=== PATIENT | male | born 1990 | race Caucasian/White ===

== ENCOUNTER 2020-02-24 15:39 | Emergency (ER) | payer OTHER, MEDICAID, SELFPAY ==
[2020-02-24 15:52] VITALS: BP 147/74; TEMP 37; BMI 32.5
[2020-02-24 16:03] LABS: Add Manual Diff / Slide Review NO; Basophils Absolute Auto 100 /uL (0-100); Basophils Percent Auto 1.2 % (0-2); Eosinophils Absolute Auto 200 /uL (0-450); Eosinophils Percent Auto 2.7 % (2-4); Hematocrit 44.2 % (41-53); Hemoglobin 14.9 g/dL (13.5-17.5); Lymphocytes Absolute Auto 2200 /uL (1100-4500); Lymphocytes Percent Auto 29.3 % (25-40); Mean Corpuscular HGB Conc 33.6 % (30-36); Mean Corpuscular Hemoglobin 29.2 PG (26-34); Mean Corpuscular Volume 86.8 fL (80-100); Monocytes Absolute Auto 600 /uL (0-900); Neutrophils Absolute Auto 4300 /uL (1500-7000); Neutrophils Percent Auto 58.8 % (50-75); Platelet Count 306 X10^3/uL (150-400); Red Blood Cell Count 5.09 X10^6/uL (4.5-5.9); Red Cell Distribution Width 13.6 % (11.6-14.8); White Blood Cell Count 7.4 X10^3/uL (4.5-11.0)
[2020-02-24 16:13] LABS: Alanine Aminotransferase 27 IU/L (<50); Albumin 4.5 g/dL (3.5-5.0); Albumin Globulin Ratio 1.3 (1.0-2.8); Alkaline Phosphatase 97 U/L (38-126); Amylase 70 U/L (30-110); Aspartate Aminotransferase 30 IU/L (17-59); BUN Creatinine Ratio 11.4 (6-22); Bilirubin Total 0.5 mg/dL (0.2-1.3); Blood Urea Nitrogen 10 mg/dL (9-20); Calcium 9.3 mg/dL (8.4-10.2); Carbon Dioxide 25 mmol/L (22-32); Chloride 104 mmol/L (98-107); Estimated Glomerular Filt Rate > 60.0 mL/min (>60); Globulin 3.4 g/dL (1.7-4.1); Glucose 105 mg/dL (70-100); HEMOLYSIS 41 (0-50); Lipase 34 U/L (23-300); Potassium 4.2 mmol/L (3.4-5.1); Sodium 138 mmol/L (137-145); Total Protein 7.9 g/dL (6.3-8.2)
--- NOTE | 2020-02-24 17:30 | DI.CT.S_ITS ---
PROCEDURE: CT ABDOMEN PELVIS W CON INDICATIONS: rlq pain TECHNIQUE: After the administration of intravenous contrast, 5 mm thick sections acquired from the diaphragm to the symphysis. 5 mm coronal and sagittal reformats were acquired. For radiation dose reduction, the following was used: automated exposure control, adjustment of mA and/or kV according to patient size. COMPARISON: None. FINDINGS: Image quality: Excellent. ABDOMEN: Lung bases: Lung bases are clear. Heart size is normal. Solid organs: Liver is normal in size and enhancement. Gallbladder is unremarkable. Biliary system is non dilated. Pancreas enhances normally. Spleen is normal in size and enhancement. No adrenal nodules. Kidneys demonstrate normal size and enhancement, without hydronephrosis. Peritoneum and bowel: Question mild thickening of the wall of the cecum and ascending colon versus decompressed appearance. Bowel loops otherwise demonstrate normal wall thickness and caliber. No free fluid or air. Normal appendix. No abscess cavity. Nodes and vessels: No retroperitoneal or mesenteric adenopathy by size criteria. Aorta and inferior vena cava are normal in size. Miscellaneous: No ventral hernias. PELVIS: Genitourinary: Bladder wall thickness is normal. Miscellaneous: No inguinal hernias or adenopathy. Bones: No suspicious bony lesions. No vertebral body compression fractures. IMPRESSION: 1. Normal appendix. 2. Question mild diffuse bowel wall thickening of the cecum and ascending colon versus decompressed bowel. Question possible focal colitis. Consider infectious versus inflammatory causes. Dictated by: Neo Pollack M.D. on 02/24/2020 at 17:07 Approved by: Neo Pollack M.D. on 02/24/2020 at 17:10
[2020-02-24] MEDS: predniSONE 20 MG TABLET 40 MG PO (19:07)
[2020-02-24 19:49] VITALS: BP 153/96; PULSE 89; RESP 16; O2SAT 97
--- NOTE | 2020-02-24 20:12 | ED.ABDPAIN ---
HPI - Abdominal Pain <ALEXIS Carey - Last Filed: 02/24/20 20:19> General Chief Complaint: Abdominal Pain Stated Complaint: right side abdominal pain Time Seen by Provider: 02/24/20 15:43 Source: patient Mode of arrival: Ambulatory Limitations: no limitations History of Present Illness HPI narrative: The patient is a 30-year-old male nonsmoker who denies pertinent medical history presents with a chief complaint of right lower quadrant pain. He states he woke up with it today. This got progressively worse at times, waxing and waning. No fevers nausea vomiting or diarrhea. States he is eating and drinking well. No chest pain or shortness of breath. Denies any history of abdominal surgeries. Pain is nonradiating, does not go anywhere. He has not taken anything for it. Last oral intake was ?a large piece of cake at 11:30 a.m.he is accompanied by his mother. Denies any flank pain, had 1 episode of dysuria earlier today, no urgency or frequency. Mother states that she thinks her son has had episodes like this before. Related Data Previous Rx's Medication Instructions Recorded paroxetine HCl [Paxil] 0 PO QDAY #360 ml 03/25/16 prednisone 40 mg PO DAILY 4 Days #8 tab 02/24/20 Review of Systems <ALEXIS Carey - Last Filed: 02/24/20 20:19> Review of Systems Narrative: GENERAL: Denies chills, fatigue, malaise, fever, sweats. HEENT: Denies sinus pain, ear pain, sore throat, difficulty swallowing, dizziness. RESPIRATORY: Denies dyspnea, cough, wheezing, hemoptysis, sputum. CARDIOVASCULAR: Denies chest pain, palpitations, orthopnea, edema, GASTROINTESTINAL: See HPI : See HPI MUSCULOSKELETAL: denies weakness, joint pain, or bony pain SKIN: Denies rash, skin lesions, or other NEUROLOGIC: Denies weakness, headache, numbness, change in speech, confusion, seizures, incoordination. PSYCHIATRIC: No concerning psychosocial issues. 12 point review of systems is negative except for those stated above Patient History <ALEXIS Carey - Last Filed: 02/24/20 20:19> Surgical History History of tonsillectomy Family History Father Age: 67 Essential hypertension Mother Age: 61 High cholesterol Grandmother Age: 90 Diabetes mellitus Social History Smoking Status: Never smoker Smoking Status: Never smoker Exam <ALEXIS Carey - Last Filed: 02/24/20 20:19> Narrative Exam Narrative: GENERAL: This is a well-nourished, well-developed patient, in no acute distress HEAD: Atraumatic. Normocephalic. No temporal or scalp tenderness. EYES: Pupils equal round and reactive. Extraocular motions intact. No scleral icterus. No injection or drainage. ENT: Nose without bleeding, purulent drainage or septal hematoma. Throat without erythema, tonsillar hypertrophy or exudate. Uvula midline. Airway patent. NECK: Trachea midline. No JVD or lymphadenopathy. Supple, nontender, no meningeal signs. CARDIOVASCULAR: Regular rate and rhythm RESPIRATORY: Clear to auscultation. Breath sounds equal bilaterally. No wheezes, rales, or rhonchi. No cough. No increased respiratory effort. No accessory muscle use GASTROINTESTINAL: Abdomen soft, right lower quadrant tenderness to palpation with guarding, nondistended. No hepato-splenomegaly, or palpable masses. Active bowel sounds all 4 quadrants EXTREMITIES: No clubbing, cyanosis, or edema. No joint tenderness, effusion, or edema noted. BACK: Nontender without deformity or crepitance. No flank tenderness. NEURO: AOx3. SKIN: No rash or erythema. Initial Vital Signs Initial Vital Signs: Vital Signs Temperature 98.6 F 02/24/20 15:52 Blood Pressure 147/74 H 02/24/20 15:52 <Kishore Mcintyre DO - Last Filed: 02/24/20 20:35> Initial Vital Signs Initial Vital Signs: Vital Signs Temperature 98.6 F 02/24/20 15:52 Blood Pressure 147/74 H 02/24/20 15:52 Scores <ALEXIS Carey - Last Filed: 02/24/20 20:19> GCS Kelsey coma scale eye opening: Spontaneous [place] coma scale verbal response: Orientated Kelsey coma scale motor response: Obey commands Kelsey coma scale total score: 15 Course <ALEXIS Carey - Last Filed: 02/24/20 20:19> Orders Ordered: ED Orders 02/24/20 15:55 Amylase Stat Complete Blood Count AUTO DIFF Stat Comprehensive Metabolic Panel Stat Lipase Stat 02/24/20 17:30 CT abdomen pelvis w con Stat Discontinued Medications Prednisone (Deltasone) 40 mg PO NOW ONE Stop: 02/24/20 18:47 Last Admin: 02/24/20 19:07 Dose: 40 mg Documented by: MALIKA Vital Signs Vital signs: Vital Signs - 8 hr 02/24/20 15:52 02/24/20 19:49 Temperature 98.6 F Pulse Rate 89 Respiratory Rate 16 Blood Pressure 147/74 H 153/96 H Pulse Oximetry 97 <Kishore Mcintyre DO - Last Filed: 02/24/20 20:35> Orders Ordered: ED Orders 02/24/20 15:55 Amylase Stat Complete Blood Count AUTO DIFF Stat Comprehensive Metabolic Panel Stat Lipase Stat 02/24/20 17:30 CT abdomen pelvis w con Stat Discontinued Medications Prednisone (Deltasone) 40 mg PO NOW ONE Stop: 02/24/20 18:47 Last Admin: 02/24/20 19:07 Dose: 40 mg Documented by: MALIKA Vital Signs Vital signs: Vital Signs - 8 hr 02/24/20 15:52 02/24/20 19:49 Temperature 98.6 F Pulse Rate 89 Respiratory Rate 16 Blood Pressure 147/74 H 153/96 H Pulse Oximetry 97 MDM - Abdominal Pain <ALEXIS Carey - Last Filed: 02/24/20 20:19> Differential Diagnosis Differential diagnosis: Likely abdominal pain, acute appendicitis and calculus of kidney Lab Data Attestation: I reviewed the patient's lab results. Result diagrams: 02/24/20 15:55 02/24/20 15:55 Labs: Lab Results 02/24/20 02/24/20 Range/Units 15:55 15:55 WBC 7.4 (4.5-11.0) X10^3/uL RBC 5.09 (4.5-5.9) X10^6/uL Hgb 14.9 (13.5-17.5) g/dL Hct 44.2 (41-53) % MCV 86.8 (80-100) fL MCH 29.2 (26-34) PG MCHC 33.6 (30-36) % RDW 13.6 (11.6-14.8) % Plt Count 306 (150-400) X10^3/uL Neut % (Auto) 58.8 (50-75) % Lymph % (Auto) 29.3 (25-40) % [place] % (Auto) 8.0 (3-14) % Eos % (Auto) 2.7 (2-4) % Baso % (Auto) 1.2 (0-2) % Neut # (Auto) 4300 (4643-9841) /uL Lymph # (Auto) 2200 (4117-1038) /uL [place] # (Auto) 600 (0-900) /uL Eos # (Auto) 200 (0-450) /uL Baso # (Auto) 100 (0-100) /uL Sodium 138 (137-145) mmol/L Potassium 4.2 (3.4-5.1) mmol/L Chloride 104 (98-107) mmol/L Carbon Dioxide 25 (22-32) mmol/L BUN 10 (9-20) mg/dL Creatinine 0.88 (0.66-1.25) mg/dL Estimated GFR > 60.0 (>60) mL/min BUN/Creatinine Ratio 11.4 (6-22) Glucose 105 H (70-100) mg/dL Calcium 9.3 (8.4-10.2) mg/dL Total Bilirubin 0.5 (0.2-1.3) mg/dL AST 30 (17-59) IU/L ALT 27 (<50) IU/L Alkaline Phosphatase 97 (38-126) U/L Total Protein 7.9 (6.3-8.2) g/dL Albumin 4.5 (3.5-5.0) g/dL Globulin 3.4 (1.7-4.1) g/dL Albumin/Globulin Ratio 1.3 (1.0-2.8) Amylase 70 (30-110) U/L Lipase 34 (23-300) U/L Point of care testing: Urine Dip Bedside Urine Glucose Negative Bedside Urine Bilirubin - Negative Bedside Urine Ketone - Negative Urine Specific [place] 1.005 Bedside Urine Occult Blood - Negative Bedside Urine pH 6.0 Bedside Urine Protein - Negative Bedside Urine Urobilinogen - Negative Bedside Urine Nitrite - Negative Bedside Urine Leukocytes - Negative Esterase Imaging Data CT scan - abdomen/pelvis: Radiologist's Impression: [address] [place] [id number] Scan Report Signed Patient: Jose Grove JMR#: [id number] : 1990Acct:[id number] Age/Sex: 30 / MDate of Service: 02/24/20 Loc: ED Accession Number: [id number] Procedure: CT abdomen pelvis w con Ordering Provider: Rosa Maria Sharp- PROCEDURE: CT ABDOMEN PELVIS W CON INDICATIONS: rlq pain TECHNIQUE: After the administration of intravenous contrast, 5 mm thick sections acquired from the diaphragm to the symphysis. 5 mm coronal and sagittal reformats were acquired. For radiation dose reduction, the following was used: automated exposure control, adjustment of mA and/or kV according to patient size. COMPARISON: None. FINDINGS: Image quality: Excellent. ABDOMEN: Lung bases: Lung bases are clear. Heart size is normal. Solid organs: Liver is normal in size and enhancement. Gallbladder is unremarkable. Biliary system is non dilated. Pancreas enhances normally. Spleen is normal in size and enhancement. No adrenal nodules. Kidneys demonstrate normal size and enhancement, without hydronephrosis. Peritoneum and bowel: Question mild thickening of the wall of the cecum and ascending colon versus decompressed appearance. Bowel loops otherwise demonstrate normal wall thickness and caliber. No free fluid or air. Normal appendix. No abscess cavity. Nodes and vessels: No retroperitoneal or mesenteric adenopathy by size criteria. Aorta and inferior vena cava are normal in size. Miscellaneous: No ventral hernias. PELVIS: Genitourinary: Bladder wall thickness is normal. Miscellaneous: No inguinal hernias or adenopathy. Bones: No suspicious bony lesions. No vertebral body compression fractures. IMPRESSION: 1. Normal appendix. 2. Question mild diffuse bowel wall thickening of the cecum and ascending colon versus decompressed bowel. Question possible focal colitis. Consider infectious versus inflammatory causes. Dictated by: Neo Pollack M.D. on 02/24/2020 at 17:07 Approved by: Neo Pollack M.D. on 02/24/2020 at 17:10 [facility] [place] Narrative Medical decision making narrative: The patient is a 30-year-old male who presents with a chief complaint of right lower quadrant tenderness to palpation. He started having this this morning. Given his guarding on exam, I did obtain a CT scan which showed concern for colitis. This is thought to be more inflammatory rather than infectious as the patient is afebrile, no vomiting, no leukocytosis. Thus he was placed on steroids. He appears well and nontoxic throughout stay in the emergency department. Encouraged him to follow up with primary care provider in the next few days and come back to emergency department for any acute concerns. Discussed light diet, pushing fluids, no spicy deep fried fatty foods etcetera discussed at length coming back to the ER for acute concerns such as inability keep down fluids, abdominal pain with fever etcetera. Patient mother no questions or concerns upon discharge and state understanding of return precautions as well as follow-up care. <Kishore Mcintyre, - Last Filed: 02/24/20 20:35> Lab Data Labs: Lab Results 02/24/20 02/24/20 Range/Units 15:55 15:55 WBC 7.4 (4.5-11.0) X10^3/uL RBC 5.09 (4.5-5.9) X10^6/uL Hgb 14.9 (13.5-17.5) g/dL Hct 44.2 (41-53) % MCV 86.8 (80-100) fL MCH 29.2 (26-34) PG MCHC 33.6 (30-36) % RDW 13.6 (11.6-14.8) % Plt Count 306 (150-400) X10^3/uL Neut % (Auto) 58.8 (50-75) % Lymph % (Auto) 29.3 (25-40) % [place] % (Auto) 8.0 (3-14) % Eos % (Auto) 2.7 (2-4) % Baso % (Auto) 1.2 (0-2) % Neut # (Auto) 4300 (0844-0615) /uL Lymph # (Auto) 2200 (5224-3847) /uL [place] # (Auto) 600 (0-900) /uL Eos # (Auto) 200 (0-450) /uL Baso # (Auto) 100 (0-100) /uL Sodium 138 (137-145) mmol/L Potassium 4.2 (3.4-5.1) mmol/L Chloride 104 (98-107) mmol/L Carbon Dioxide 25 (22-32) mmol/L BUN 10 (9-20) mg/dL Creatinine 0.88 (0.66-1.25) mg/dL Estimated GFR > 60.0 (>60) mL/min BUN/Creatinine Ratio 11.4 (6-22) Glucose 105 H (70-100) mg/dL Calcium 9.3 (8.4-10.2) mg/dL Total Bilirubin 0.5 (0.2-1.3) mg/dL AST 30 (17-59) IU/L ALT 27 (<50) IU/L Alkaline Phosphatase 97 (38-126) U/L Total Protein 7.9 (6.3-8.2) g/dL Albumin 4.5 (3.5-5.0) g/dL Globulin 3.4 (1.7-4.1) g/dL Albumin/Globulin Ratio 1.3 (1.0-2.8) Amylase 70 (30-110) U/L Lipase 34 (23-300) U/L Point of care testing: Urine Dip Bedside Urine Glucose Negative Bedside Urine Bilirubin - Negative Bedside Urine Ketone - Negative Urine Specific [place] 1.005 Bedside Urine Occult Blood - Negative Bedside Urine pH 6.0 Bedside Urine Protein - Negative Bedside Urine Urobilinogen - Negative Bedside Urine Nitrite - Negative Bedside Urine Leukocytes - Negative Esterase Discharge Plan Departure Patient Disposition: Home Clinical Impression: Colitis Discharge Date/Time: 02/24/20 19:51 Instructions: DI for Colitis Activity Restrictions/Additional Instructions: Thank you for trusting us with your care today. As discussed, your CT shows evidence of colitis. We have elected to treat you with steroids at this point time. Please monitor for any signs of worsening including fever, abdominal pain with fever, inability keep down fluids etcetera As discussed, I encouraged heat a light diet over the next few days with a focus on fluids. Please eat bland foods, avoid deep fried fatty foods, spicy foods etcetera Please follow-up with primary care provider. I have included contact information the [facility] v[facility] human resources as well as your old primary care provider. I sent your steroid prescription to [facility]. Prescriptions: New prednisone 20 mg tablet 40 mg PO DAILY 4 Days Qty: 8 RF: 0 No Action paroxetine HCl [Paxil] 10 MG/5 ML suspension 0 PO QDAY Qty: 360 RF: 5 Referrals: [facility] [Outside] Jak Jovel MD [Primary Care Provider] - <Kishore Mcintyre, DO - Last Filed: 02/24/20 20:35> Cosign ED Attending Cosignature Attestation: Dr Mcintyre Co-Sign Statement: I was available for consultation during this patient's emergency department visit. This chart is signed by myself for administrative purposes only. I did not have direct contact with this patient during this visit. They were seen independently by the APC.
== END 2020-02-24 19:51 | disposition home or self-care (01) ==
PROVIDERS: Emergency Provider Nurse Practitioner Family; Family Provider Family Medicine; PCP Family Medicine
DX: K52.9 Noninfective gastroenteritis and colitis, unspecified (principal)
CPT/HCPCS: 36415; 74177; 80053; 81003; 82150; 83690; 85025; 99283; 99284; Q9967

== ENCOUNTER 2021-11-10 19:24 | Emergency (ER) | payer OTHER, MEDICAID, SELFPAY ==
[2021-11-10 19:36] VITALS: BP 132/87; PULSE 82; RESP 16; TEMP 36.6; O2SAT 98; BMI 31.1
--- NOTE | 2021-11-10 20:11 | DI.RAD.S_ITS ---
PROCEDURE: XR FOOT RT MIN 3V INDICATIONS: foot pain TECHNIQUE: 3 views of the foot were acquired. COMPARISON: None. FINDINGS: Bones: No fractures or dislocations. No suspicious bony lesions. Soft tissues: No tibiotalar joint effusion. Achilles tendon appears normal. IMPRESSION: 1. No fracture or dislocation. Dictated by: Joseph Merino M.D. on 11/10/2021 at 21:11 Approved by: Joseph Merino M.D. on 11/10/2021 at 21:12
--- NOTE | 2021-11-10 23:12 | ED_ITS ---
HPI - Extremity Injury (Lower) General Chief Complaint: Extremity Injury, Lower Stated Complaint: unable to walk on rt foot Time Seen by Provider: 11/10/21 23:12 Mode of arrival: Ambulatory History of Present Illness HPI Narrative: 31-year-old gentleman history of Asperger's syndrome but otherwise minimal medical history presents with 2 and half months of heel pain on the right side that is getting progressively worse. He has tried multiple times to given to his primary care physician and has been unable to schedule an appointment. He notes that the 1st step of the morning is the worst, standing on it for extended periods of time makes it worse. He has trouble swallowing pills so has not been using consistent anti-inflammatories. 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 He peacock have inserts for his tennis shoes but they are not sp ecifically plantar fasciitis inserts. The pain is getting to the point where it is not tolerable. He was walking on some grass today and twisted just the right way and had increasing pain and came in for further evaluation. Related Data Previous Rx's Medication Instructions Recorded paroxetine HCl 10 mg/5 mL oral 0 PO QDAY #360 ml 03/25/16 suspension (Paxil) meloxicam 15 mg tablet 15 mg PO DAILY #30 tab 11/11/21 Allergies Allergy/AdvReac Type Severity Reaction Status Date / Time No Known Drug Allergies Allergy Unverified 11/10/21 19:39 Review of Systems Review of Systems Narrative: Remainder of complete review of systems is otherwise unremarkable except for that included in the HPI. Patient History Medical History Colitis (~2019) Well adult Surgical History History of tonsillectomy Family History Father Essential hypertension Cancer Mother Age: 62 High cholesterol Grandmother Age: 91 Diabetes mellitus Grandfather Cancer Social History Smoking Status: Never smoker Smoking Status: Never smoker Substance Use Type: does not use Exam Initial Vital Signs Initial Vital Signs: Vital Signs Temperature 97.8 F 11/10/21 19:36 Pulse Rate 82 11/10/21 19:36 Respiratory Rate 16 11/10/21 19:36 Blood Pressure 132/87 11/10/21 19:36 Pulse Oximetry 98 11/10/21 19:36 General: Alert appropriate in no acute distress Respiratory: Able to speak in full sentences, no obvious respiratory distress Skin: No obvious rashes, warm and dry Neurologic: Grossly intact no obvious asymmetries or abnormalities Psych: appropriate insight and affect, cooperative Extremity: Right heel is examined. He is point tender over the plantar insertion area. There is no swelling, redness, skin breakdown, pain in the forefoot or suggestion gout. No ankle tenderness with manipulation and nonpainful range of motion. Course Orders Ordered: ED Orders 11/10/21 20:11 XR foot RT min 3V Stat Vital Signs Vital signs: Vital Signs - 8 hr 11/10/21 19:36 Temperature 97.8 F Pulse Rate 82 Respiratory Rate 16 Blood Pressure 132/87 Pulse Oximetry 98 MDM - Extremity Injury (Lower) MDM Narrative Medical decision making narrative: 31-year-old gentleman with fairly classic presentation of plantar fasciitis that is not improving. No evidence of gout, infection, arthritis or alternative explanations that needs additional workup. Please see discussion of recommendations in his discharge instructions below. I did fashion him a evening splint to keep his foot flexed while he is asleep that is removal. I also informed him that there is multiple options that may be much more comfortable at he can find on the Internet. Questions areAnswered he is safe for home discharge Discharge Plan Departure Patient Disposition: Home Clinical Impression: Plantar fasciitis of right foot Instructions: DI for Plantar Fasciitis Activity Restrictions/Additional Instructions: Thank you for coming in tonight. I am sorry it has been so difficult to get into your primary care doctor. You have plantar fasciitis. Treating this needs a multi pronged approach. 1. Regular anti-inflammatory medication. I am going to give you a prescription for daily meloxicam. This pill can be crushed so that you can put it in a bite of jam or liquid to get it down daily. It simply needs to be taken once a day and the timing is not particularly important. This prescription was electronically transmitted to [facility] in [place] to be picked up tomorrow 2. Using the nighttime splint that we created in the emergency department to keep your foot flexed all night so that as the bottom of your foot heals why you are sleeping it is healing in a position that is stretched so that 1st step of the day is not the most painful and breakdown all of the healing that happened overnight 3. The inserts that you got for your shoes are partially helpful however there are specific plantar fasciitis sole inserts that have a very soft squishy center to try to unload the pressure right in the center of your heal. I would recommend buying some of these at a store and using them regularly. Wearing shoes inside the house rather than going barefoot is usually recommended as well. 4. Ice to the bottom of your foot can be helpful. Trying to minimize standing for extended periods of time and minimize walking until things are beginning to improve 5. Following up with an orthopedic surgeon or fighter pilot to discuss further care. Please contact [facility] at [phone] and tell them you were diagnosed with plantar fasciitis and need to schedule an appointment with 1 of their doctors. I wish you the best Prescriptions: New meloxicam 15 mg tablet 15 mg PO DAILY Qty: 30 1RF No Action paroxetine HCl [Paxil] 10 MG/5 ML suspension 0 PO QDAY Qty: 360 5RF Referrals: Santosh Prieto, [Primary Care Provider] -
[2021-11-11 00:18] VITALS: BP 121/57; PULSE 75; RESP 18; O2SAT 97
== END 2021-11-11 00:24 | disposition home or self-care (01) ==
PROVIDERS: Emergency Provider Emergency Medicine; Family Provider Family Medicine; PCP Family Medicine
DX: M72.2 Plantar fascial fibromatosis (principal)
CPT/HCPCS: 73630; 99283